=== PATIENT | female | born 1955 | race Caucasian/White ===

== ENCOUNTER 2020-01-01 14:59 | Outpatient (CLI) | payer OTHER, SELFPAY ==
--- NOTE | ~2020-01-01 | MM_ITS ---
EXAMINATION: MM screening [facility] BI w marzena HISTORY: Screening mammogram TECHNIQUE: Craniocaudal and mediolateral oblique 3-D tomosynthesis images were obtained and synthetic 2-D images were generated. CAD analysis was submitted and interpreted. COMPARISON: 11/30/2018, 11/21/2017, 11/16/2016 BREAST PARENCHYMAL COMPOSITION: There are scattered areas of fibroglandular density. FINDINGS: There is no evidence of suspicious mass, calcification, or architectural distortion to sugg est malignancy in either breast. There has been no suspicious interval change. IMPRESSION: 1. No mammographic evidence of malignancy. 2. Recommend routine screening mammography in one year. BI-RADS Category 1: Negative Reviewed, dictated and finalized at location A. COLOR TESTER
== END 2020-01-01 15:00 | disposition home or self-care (01) ==
PROVIDERS: PCP Family Medicine; Visit Provider Obstetrics & Gynecology
DX: Z12.31 Encounter for screening mammogram for malignant neoplasm of breast (principal)
CPT/HCPCS: 77063; 77067

== ENCOUNTER 2021-01-29 08:04 | Outpatient (CLI) | payer BC, SELFPAY ==
--- NOTE | ~2021-01-29 | MM_ITS ---
EXAMINATION: MM screening [facility] BI w marzena HISTORY: Screening mammogram TECHNIQUE: Craniocaudal and mediolateral oblique 3-D tomosynthesis images were obtained and synthetic 2-D images were generated. CAD analysis was submitted and interpreted. COMPARISON: 01/01/2020, 11/30/2018, 11/21/2017 bilateral screening mammogram examinations BREAST PARENCHYMAL COMPOSITION: There are scattered areas of fibroglandular density. FINDINGS: There is no evidence of suspicious mass, calcification, or architectural distortion to sugg est malignancy in either breast. There has been no suspicious interval change. IMPRESSION: 1. No mammographic evidence of malignancy. 2. Recommend routine screening mammography in one year. BI-RADS Category 1: Negative Reviewed, dictated and finalized at location A. ELECTRICIAN
== END 2021-01-29 08:05 | disposition home or self-care (01) ==
PROVIDERS: PCP Family Medicine; Visit Provider Obstetrics & Gynecology
DX: Z12.31 Encounter for screening mammogram for malignant neoplasm of breast (principal)
CPT/HCPCS: 77063; 77067

== ENCOUNTER 2022-02-04 10:09 | Outpatient (CLI) | payer MEDICARE, SELFPAY ==
--- NOTE | ~2022-02-04 | MM_ITS ---
EXAMINATION: MM screening [facility] BI w marzena HISTORY: Screening TECHNIQUE: Craniocaudal and mediolateral oblique 3-D tomosynthesis images were obtained and synthetic 2-D images were generated. CAD analysis was submitted and interpreted. COMPARISON: Comparison to multiple prior studies sequentially, with oldest reviewed study dated 11/03. BREAST PARENCHYMAL COMPOSITION: There are scattered areas of fibroglandular density. FINDINGS: There is no evidence of suspicious mass, calcification, or architectural distortion to sugg est malignancy in either breast. There has been no suspicious interval change. IMPRESSION: 1. No mammographic evidence of malignancy. 2. Recommend routine screening mammography in one year. BI-RADS Category 1: Negative Reviewed, dictated and finalized at location A. NTORY ASSOCIATE
== END 2022-02-04 10:10 | disposition home or self-care (01) ==
LOC: ANHIMG 10:09
PROVIDERS: PCP Family Medicine; Visit Provider Obstetrics & Gynecology
DX: Z12.31 Encounter for screening mammogram for malignant neoplasm of breast (principal)
CPT/HCPCS: 77063; 77067

== ENCOUNTER 2022-08-20 11:02 | Emergency (ER) | payer MEDICARE, SELFPAY ==
--- NOTE | ~2022-08-20 | XR_ITS ---
EXAMINATION: XR toe 1st LT min 2V DATE: 08/20/2022 11:39 INDICATION: Left great toe pain and swelling TECHNIQUE: Dorsal plantar, lateral and 2 oblique views of the left great toe were obtained. COMPARISON: None FINDINGS: Alignment is normal. No fracture. Minimal to mild polyarticular osteoarthritis at majority the visual ized metatarsophalangeal and interphalangeal joints. No erosions. Soft tissues are unremarkable. 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 No acute osseous abnormality or erosions. Reviewed, dictated and finalized at location B. 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 No acute osseous abnormality or erosions.
[2022-08-20 11:15] VITALS: BP 156/76; PULSE 82; RESP 16; TEMP 36.5; O2SAT 99
--- NOTE | 2022-08-20 11:20 | ED.GENADULT ---
HPI - General Adult General Chief complaint: Extremity Injury, Lower Stated complaint: Pain in left toe; foot is swollen Time Seen by Provider: 08/20/22 11:20 Source: patient Mode of arrival: ambulatory Limitations: no limitations History of Present Illness HPI narrative: 66 yo F presents with c/o pain, redness, swelling to L great toe for 3 days. pain worse at night. states barely touch the toe and so painful . Denies injury. No hx of gout. Called her PCP was told to come to [facility] to be checked for insect bite. Pt states taking ibuprofen every 6 hours for 2 days. all systems reviewed and negative except as noted above. Related Data Home Medications Medication Instructions Recorded Confirmed cholecalciferol (vitamin D3) 25 1,000 unit PO DAILY 12/21/18 08/20/22 mcg (1,000 unit) capsule ferrous sulfate 325 mg (65 mg 325 mg PO DAILY 12/21/18 08/20/22 iron) tablet meclizine 12.5 mg tablet 25 mg PO PRN PRN Dizziness 08/20/22 08/20/22 Allergies Allergy/AdvReac Type Severity Reaction Status Date / Time No Known Allergies Allergy Unknown Verified 08/20/22 11:27 Review of Systems Review of Systems: CONSTITUTIONAL: Denies fever, chills, or sweats. EYES: Denies visual changes, redness, or discharge. ENT: Denies rhinorrhea, congestion, sore throat, or otalgia. CARDIOVASCULAR: Denies chest pain, palpitations, or edema. RESPIRATORY: Denies cough or dyspnea. GASTROINTESTINAL: Denies abdominal pain, nausea, vomiting, or diarrhea. GENITOURINARY: Denies dysuria or hematuria. SKIN: Denies rash or itching. MUSCULOSKELETAL: Denies back pain or myalgia. reports pain, swelling and redness to L great toe NEUROLOGIC: Denies headache, numbness, or weakness. PSYCHIATRIC: Denies anxiety or depression. All other systems reviewed are negative, except as documented in HPI. REPLACED BY [facility] Past Medical History Medical History (Updated 08/20/22 @ 11:52 by Chantale Dykes NP) Hepatitis C antibody test negative (02/15/17) History of bone density study (~01/13/09) Thyroid disease Varicella (~06/09/17) Surgical History Surgical History History of colonoscopy (08/08/14) History of dilation and curettage Family History Family History Mother Hypertension Family history of coronary artery disease Father Family history of elevated blood lipids Family history of lymphoma Hypertension Grandparent Family history of malignant neoplasm Family history of malignant neoplasm of cervix Family history of coronary artery disease Social History Social History Smoking status: Never smoker Alcohol intake: never Substance use: never Substance use type: does not use Lack of Transportation: No Lack of Food: Never True Current Housing: I Have Housing Concerned About Future Housing: No Difficulty Paying Gas/Electric Bills: No Difficulty Paying for Meds: No Currently Unemployed: No Education: Bachelor's Degree Difficulty w/ Childcare or Family Care: No Gender identity (if verbalized by the patient): Female Comments At time of signature, agree with nursing past medical, surgical, social and family history. There is no relevant family history pertinent to the presenting complaint. Exam Narrative: GENERAL: This is a well-nourished, well-developed patient, in no apparent distress. HEAD: normocephalic, atraumatic. EYES: PERRL. Sclera clear/white. Vision is grossly intact. EARS: External ears normal NOSE: External nose normal NECK: Neck supple, non-tender without lymphadenopathy, masses or thyromegaly. CARDIOVASCULAR: Regular rate and rhythm without murmurs, gallops, or rubs. RESPIRATORY: Clear to auscultation. Breath sounds equal bilaterally. No wheezes, rales, or rhonchi. SKIN: warm, Dry, intact with no suspicious lesions or rash, good kiana
== END 2022-08-20 11:56 | disposition home or self-care (01) ==
PROVIDERS: Emergency Provider Nurse Practitioner Family; PCP Family Medicine
DX: M10.9 Gout, unspecified (principal)
CPT/HCPCS: 73660; 99213; G0463

== ENCOUNTER 2023-02-11 14:46 | Outpatient (CLI) | payer MEDICARE, SELFPAY ==
--- NOTE | ~2023-02-11 | MM_ITS ---
EXAMINATION: MM screening [facility] BI w marzena HISTORY: Screening mammogram TECHNIQUE: Craniocaudal and mediolateral oblique 3-D tomosynthesis images were obtained and synthetic 2-D images were generated. CAD analysis was submitted and interpreted. COMPARISON: 02/04/2022, 01/29/2021, 01/01/2020 bilateral screening mammogram examinations BREAST PARENCHYMAL COMPOSITION: There are scattered areas of fibroglandular density. FINDINGS: There is no evidence of suspicious mass, calcification, or architectural distortion to sugg est malignancy in either breast. There has been no suspicious interval change. IMPRESSION: 1. No mammographic evidence of malignancy. 2. Recommend routine screening mammography in one year. BI-RADS Category 1: Negative Reviewed, dictated and finalized at location A. TER SKI EDGE
== END 2023-02-11 14:47 | disposition home or self-care (01) ==
PROVIDERS: PCP Family Medicine; Visit Provider Obstetrics & Gynecology
DX: Z12.31 Encounter for screening mammogram for malignant neoplasm of breast (principal)
CPT/HCPCS: 77063; 77067

== ENCOUNTER → 2023-03-24 11:55 | Outpatient (CLI) | payer MEDICARE, SELFPAY ==
--- NOTE | ~2023-03-24 | XR_ITS ---
Right Knee Technique: AP, lateral, and sunrise views were obtained. Clinical History: Pain Findings: No fracture or dislocation is seen. Osseous alignment is anatomic. Joint spaces are preserv ed without degenerative or erosive change. Soft tissues are unremarkable. No joint effusion is seen. Impression: Unremarkable right knee radiographs. Reviewed, dictated and finalized at location . ATIONS SUPERINTENDENT Impression: Unremarkable right knee radiographs.
== END ==
PROVIDERS: PCP Family Medicine; Visit Provider Nurse Practitioner
DX: M25.561 Pain in right knee (principal)
CPT/HCPCS: 73562

== ENCOUNTER 2023-04-02 19:28 | Emergency (ER) | payer MEDICARE, SELFPAY ==
[2023-04-02 19:33] VITALS: BP 129/63; PULSE 111; RESP 16; TEMP 38.6; O2SAT 95
[2023-04-02 19:41] VITALS: BP 129/63; PULSE 111; RESP 16; TEMP 38.6; O2SAT 95
--- NOTE | 2023-04-02 19:46 | ED.URI ---
HPI - URI/Sore Throat General Chief Complaint: Upper Respiratory Infection Stated Complaint: Fever Time Seen by Provider: 04/02/23 19:34 Source: patient and RN notes reviewed Mode of arrival: ambulatory Limitations: no limitations History of Present Illness HPI Narrative: Patient presents today complaining of cough since yesterday with fever up to 102.8, fatigue, rhinorrhea, chills, and intermittent mild shortness of breath with exertion today. Patient has been taking Tylenol, ibuprofen, and her albuterol inhaler with relief. She used her albuterol inhaler twice yesterday and none today. History of asthma. States she also has Symbicort but does not take it unless she needs it. Patient watched her granddaughter yesterday who had a fever. Related Data Home Medications Medication Instructions Recorded Confirmed cholecalciferol (vitamin D3) 25 1,000 unit PO DAILY 12/21/18 03/24/23 mcg (1,000 unit) capsule ferrous sulfate 325 mg (65 mg 325 mg PO DAILY 12/21/18 03/24/23 iron) tablet meclizine 12.5 mg tablet 25 mg PO PRN PRN Dizziness 08/20/22 03/24/23 Allergies Allergy/AdvReac Type Severity Reaction Status Date / Time No Known Allergies Allergy Unknown Verified 04/02/23 19:34 Review of Systems Review of Systems: CONSTITUTIONAL: Denies body aches, sweats.+ fever, chills, fatigue EYES: Denies visual changes, redness, or discharge. ENT: Denies congestion, sore throat, or otalgia.+ rhinorrhea CARDIOVASCULAR: Denies chest pain, palpitations, or edema. RESPIRATORY:+ cough, shortness GASTROINTESTINAL: Denies abdominal pain, nausea, vomiting, or diarrhea. GENITOURINARY: Denies dysuria or hematuria. SKIN: Denies rash, itching, or wounds. MUSCULOSKELETAL: Denies back pain, joint pain, or myalgia. NEUROLOGIC: Denies headache, numbness, tingling, or weakness. PSYCH: Denies depression or anxiety. [facility] Past Medical History Medical History Hepatitis C antibody test negative (02/15/17) History of bone density study (~01/13/09) Thyroid disease Varicella (~06/09/17) Surgical History Surgical History History of colonoscopy (08/08/14) History of dilation and curettage Family History Family History Mother Hypertension Family history of coronary artery disease Father Family history of elevated blood lipids Family history of lymphoma Hypertension Grandparent Family history of malignant neoplasm Family history of malignant neoplasm of cervix Family history of coronary artery disease Social History Social History Smoking status: Never smoker Alcohol intake: never Substance use: never Substance use type: does not use Lack of Transportation: No Lack of Food: Never True Current Housing: I Have Housing Concerned About Future Housing: No Difficulty Paying Gas/Electric Bills: No Difficulty Paying for Meds: No Currently Unemployed: No Education: Bachelor's Degree Difficulty w/ Childcare or Family Care: No Gender identity (if verbalized by the patient): Female Comments At time of signature, I have reviewed and agree with nursing past medical, surgical, social and family history unless otherwise noted. Please see nursing chart for further information. There is no relevant family history pertinent to the presenting complaint Exam Narrative: GENERAL: Mildly ill-appearing, well-nourished, and in no acute distress. HEAD: Normocephalic, atraumatic. EYES: EOMI. No redness or drainage. Conjunctivae normal. ENT: Mucous membranes pink and moist. Nares clear. + rhinorrhea. TMs normal bilaterally. Throat normal. Uvula midline. NECK: Normal AROM. Supple. No lymphadenopathy. CHEST: No respiratory distress. Clear to auscultation. HEART: Regular ra
== END 2023-04-02 19:59 | disposition home or self-care (01) ==
PROVIDERS: Emergency Provider Nurse Practitioner; PCP Family Medicine
DX: B34.9 Viral infection, unspecified (principal); Z20.822 Contact with and (suspected) exposure to COVID-19; J45.909 Unspecified asthma, uncomplicated; E07.9 Disorder of thyroid, unspecified
CPT/HCPCS: 87426; 87804; 99213; G0463

== ENCOUNTER 2024-02-13 09:33 | Outpatient (CLI) | payer MEDICARE, SELFPAY ==
--- NOTE | ~2024-02-13 | MM_ITS ---
EXAMINATION: MM screening [facility] BI w marzena HISTORY: Screening mammogram TECHNIQUE: Craniocaudal and mediolateral oblique 3-D tomosynthesis images were obtained and synthetic 2-D images were generated. CAD analysis was submitted and interpreted. COMPARISON: 02/02/2023, 02/04/2022, 01/29/2021 BREAST PARENCHYMAL COMPOSITION:Not Dense. There are scattered areas of fibroglandular density. FINDINGS: No suspicious mass, calcification, or architectural distortion are identified in either nataly ast to suggest malignancy. There has been no suspicious interval change. IMPRESSION: No mammographic evidence of malignancy. Recommend routine screening mammography in one year. BI-RADS Category 1: Negative Reviewed, dictated and finalized at location . NG BOARD ASSEMBLER
== END 2024-02-13 09:34 | disposition home or self-care (01) ==
PROVIDERS: PCP Family Medicine; Referring Provider Obstetrics & Gynecology; Visit Provider Nurse Practitioner
DX: Z12.31 Encounter for screening mammogram for malignant neoplasm of breast (principal)
CPT/HCPCS: 77063; 77067

== ENCOUNTER 2024-12-18 01:18 | Day surgery (SDC) | payer MEDICARE, SELFPAY ==
[2024-12-06 08:55] VITALS: BMI 33.0
[2024-12-18 07:20] VITALS: BP 132/84; PULSE 85; RESP 18; TEMP 36.6; O2SAT 100
[2024-12-18] MEDS: LACTATED RINGERS 1,000 ML 150 ML IV CONT (07:36)
--- NOTE | 2024-12-18 07:57 | P.PNAN_ITS ---
Anes - Initial Pre Proc Eval Procedure: Operation Date: 12/18/24 08:30 Proposed Procedures p Screening Colonoscopy - Min Aponte MD Date/Time: 12/18/24 07:57 Surgeon: Min Aponte MD Pre Op Diagnosis: Screening Patient Data Age: 69 Gender: F Height: 1.68 m Weight: 95.9 kg Last Vital Signs Temp 97.8 F 12/18/24 07:20 Pulse 85 12/18/24 07:20 Resp 18 12/18/24 07:20 BP 132/84 12/18/24 07:20 Pulse Ox 100 12/18/24 07:20 O2 Del Method Room Air 12/18/24 07:20 Allergies Allergy/AdvReac Type Severity Reaction Status Date / Time No Known Allergies Allergy Unknown Verified 12/18/24 07:14 Home Medications ?Medication ?Instructions ?Recorded ?Confirmed ?Type cholecalciferol (vitamin D3) 25 1,000 unit PO DAILY 12/06/24 History mcg (1,000 unit) capsule ferrous sulfate 325 mg (65 mg 325 mg PO DAILY 12/21/18 12/06/24 History iron) tablet albuterol sulfate 90 mcg/actuation 2 inh inhalation Q4 H PRN shortness 04/13/23 12/06/24 Rx aerosol inhaler of breath or wheezing #8.5 g consuelo cetirizine 10 mg tablet (Zyrtec) 10 mg PO DAILY PRN al lergy symptoms 06/11/24 12/06/24 History meclizine 12.5 mg tablet 12.5 mg PO TID PRN dizziness #30 06/11/24 12/06/24 Rx tabs lisinopril 20 mg tablet 20 mg PO DAILY #90 tabs 06/0 05/0812/06/24 Rx hydrochlorothiazide 12.5 mg tablet 12.5 mg PO DAILY #9 0 tabs 09/10/24 12/06/24 Rx atorvastatin 10 mg tablet See Rx Instructions .Route 0 10/23/24 12/06/24 Rx .COMPLEX #90 tabs levothyroxine 75 mcg tablet See Rx Instructions .Route 10/23/24 12/06/24 Rx .COMPLEX #90 tabs triamcinolone acetonide 0.5 % 1 applic topical BID PRN rash 12/06/24 12/06/24 History topical ointment azithromycin 250 mg tablet 250 mg PO DIRECTED #6 ta bs 12/11/24 Rx methylprednisolone 4 mg tablets in See Rx Instructions PO PER PKG DIR 12/11/24 Rx a dose pack (Medrol (Trip)) #21 ea Patient hx anesthesia problems: none and other (PT reports waking up during colonoscopy 10 years ago. ) Family hx anesthesia problems: none Results Review: All pre-operative results and documents have been reviewed as part of the pre- operative evaluation. [facility] Past Medical History Medical History Hepatitis C antibody test negative (02/15/17) Varicella (~06/09/17) Thyroid disease History of bone density study (~01/13/09) Surgical History Surgical History History of dilation and curettage History of colonoscopy (08/08/14) Family History Family History Mother Hypertension Family history of coronary artery disease Father Family history of elevated blood lipids Family history of lymphoma Hypertension Grandparent Family history of malignant neoplasm Family history of malignant neoplasm of cervix Family history of coronary artery disease Social History Social History Smoking status: Never smoker Alcohol intake: never Substance use: never Substance use type: does not use Lack of Transportation: No Lack of Food: Never True Current Housing: I Have Housing Concerned About Future Housing: No Difficulty Paying Gas/Electric Bills: No Difficulty Paying for Meds: No Currently Unemployed: No Education: Bachelor's Degree Difficulty w/ Childcare or Family Care: No Gender identity (if verbalized by the patient): Female Anes - Eval Final PreProcedure Day of Procedure 12/18/24 07:57 Patient weight: obese Lungs: normal air movement Airway: Mallampati scale class II Neurological: alert and oriented Last oral intake: >/= 8 hours ASA classification: III Emergent: no Anesthetic plan: proceed Anesthesia type and monitoring: general GIVS and standard monitoring Results Review: All pre-operative results and documents have been reviewed as part of the pre- operative evaluation. BMI 34, HTN, hyperlipidemia, preDM, hypothyroidism, pt can walk 1-2 fos, no cp or sob. Informed Consent: The patient's anesthetic plan and its attendant risks and benefits were discussed with the patient/family/POA. Questions were solicited and answers provided to the satisfaction of the patient/family/POA.
--- NOTE | 2024-12-18 08:18 | P.HP_ITS ---
H&P: HPI History of Present Illness Date/Time: 12/18/24 08:18 Chief Complaint: Screening colonoscopy Narrative: This is the patient's 2nd colonoscopy after 10 years.. There are no GI symptoms and there is no family history of colorectal cancer. Review of Systems Review of Systems: All systems reviewed & are unremarkable except as noted in HPI and below PMFSH Past Medical History Medical History Hepatitis C antibody test negative (02/15/17) Varicella (~06/09/17) Thyroid disease History of bone density study (~01/13/09) Surgical History Surgical History History of dilation and curettage History of colonoscopy (08/08/14) Family History Family History Mother Hypertension Family history of coronary artery disease Father Family history of elevated blood lipids Family history of lymphoma Hypertension Grandparent Family history of malignant neoplasm Family history of malignant neoplasm of cervix Family history of coronary artery disease Social History Social History Smoking status: Never smoker Alcohol intake: never Substance use: never Substance use type: does not use Lack of Transportation: No Lack of Food: Never True Current Housing: I Have Housing Concerned About Future Housing: No Difficulty Paying Gas/Electric Bills: No Difficulty Paying for Meds: No Currently Unemployed: No Education: Bachelor's Degree Difficulty w/ Childcare or Family Care: No Gender identity (if verbalized by the patient): Female Meds Home Medications and Allergies Home Medications ?Medication ?Instructions ?Recorded ?Confirmed ?Type cholecalciferol (vitamin D3) 25 1,000 unit PO DAILY 12/06/24 History mcg (1,000 unit) capsule ferrous sulfate 325 mg (65 mg 325 mg PO DAILY 12/21/18 12/06/24 History iron) tablet albuterol sulfate 90 mcg/actuation 2 inh inhalation Q4 H PRN shortness 04/13/23 12/06/24 Rx aerosol inhaler of breath or wheezing #8.5 g consuelo cetirizine 10 mg tablet (Zyrtec) 10 mg PO DAILY PRN al lergy symptoms 06/11/24 12/06/24 History meclizine 12.5 mg tablet 12.5 mg PO TID PRN dizziness #30 06/11/24 12/06/24 Rx tabs lisinopril 20 mg tablet 20 mg PO DAILY #90 tabs 06/0 05/0812/06/24 Rx hydrochlorothiazide 12.5 mg tablet 12.5 mg PO DAILY #9 0 tabs 09/10/24 12/06/24 Rx atorvastatin 10 mg tablet See Rx Instructions .Route 0 10/23/24 12/06/24 Rx .COMPLEX #90 tabs levothyroxine 75 mcg tablet See Rx Instructions .Route 10/23/24 12/06/24 Rx .COMPLEX #90 tabs triamcinolone acetonide 0.5 % 1 applic topical BID PRN rash 12/06/24 12/06/24 History topical ointment azithromycin 250 mg tablet 250 mg PO DIRECTED #6 ta bs 12/11/24 Rx methylprednisolone 4 mg tablets in See Rx Instructions PO PER PKG DIR 12/11/24 Rx a dose pack (Medrol (Trip)) #21 ea Allergies Allergy/AdvReac Type Severity Reaction Status Date / Time No Known Allergies Allergy Unknown Verified 12/18/24 07:14 Vital Signs Vital Signs - 24 hr 12/18/24 07:20 Temperature 97.8 F Pulse Rate 85 Respiratory Rate 18 Blood Pressure 132/84 Pulse Oximetry 100 Oxygen Delivery Room Air Exam Const: General: cooperative and healthy appearing Resp: Effort & Inspection: normal respiratory effort and able to speak in complete sentences Auscultation: clear to auscultation bilaterally Cardio: Rate: regular rate Rhythm: regular rhythm GI: Inspection: normal to inspection GI Palp: No No hepatosplenomegaly present Auscultation: normal bowel sounds Rectal Exam: deferred Skin: General skin exam: normal color Psych: Appearance: grossly normal Mental Status: mental status grossly normal Assessment and Plan Assessment and plan (1) Screening for colon cancer: Code(s): Z12.11 - Encounter for screening for malignant neoplasm of colon Status: Acute Assessment and Plan: The patient is deemed a good candidate for the procedure. Consent signed. Will proceed.
[2024-12-18 08:54] VITALS: BP 99/54; PULSE 62; RESP 23; O2SAT 100
[2024-12-18 09:04] VITALS: BP 104/56; PULSE 58; RESP 18; O2SAT 100
[2024-12-18 09:14] VITALS: BP 122/68; PULSE 58; RESP 22; O2SAT 98
== END 2024-12-18 09:22 | disposition home or self-care (01) ==
PROVIDERS: PCP Family Medicine; Referring Provider Family Medicine; Visit Provider Internal Medicine Gastroenterology
PROC: 0DJD8ZZ Inspection of Lower Intestinal Tract, Via Natural or Artificial Opening Endoscopic (ICD-10-PCS; CPT 45378; principal; 2024-12-18 08:30)
DX: Z12.11 Encounter for screening for malignant neoplasm of colon (principal); I10 Essential (primary) hypertension; E78.5 Hyperlipidemia, unspecified; E11.9 Type 2 diabetes mellitus without complications; E03.9 Hypothyroidism, unspecified; E07.9 Disorder of thyroid, unspecified; Z79.51 Long term (current) use of inhaled steroids; Z80.7 Family history of other malignant neoplasms of lymphoid, hematopoietic and related tissues; Z80.49 Family history of malignant neoplasm of other genital organs; Z82.49 Family history of ischemic heart disease and other diseases of the circulatory system
CPT/HCPCS: G0105; J2003; J2704; J7120